=== PATIENT | female | born 1995 | race African-American/Black ===

== ENCOUNTER 2018-03-27 09:42 | Emergency (ER) | payer SELFPAY ==
[2018-03-27 10:11] LABS: Bilirubin Negative (Negative); Blood, Urine Large (Negative); Clarity CLOUDY (Clear); Glucose, Urine (Dipstick) Negative (Negative); Leukocyte Large (Negative); Nitrite Positive (Negative); Protein, Urine (Dipstick) 100 mg/dL (Neg-Trace); Specific Gravity, Urine 1.014 (1.002-1.036)
[2018-03-27 10:14] LABS: Bacteria/HPF 4+ HPF (None Seen); Hyaline Casts/LPF 4-6 HYALINE CAST LPF (0-3 Hyaline); Pathc Cast-AUWi Flag 0.87 (0-2.49); RBC/HPF GREATER THAN 50-TNTC HPF (0-3)
[2018-03-27 10:17] LABS: Pregnancy Test - Urine (BHCG) Negative (Negative); Pregu Control Background? CLEAR/WHITE (CLR/WHITE); Pregu Control Bar Appear? YES (CONTROL BAR); Specific Gravity 1.014 (1.002-1.036)
[2018-03-27] MEDS ORDERED: Ondansetron ODT 4 MG TAB ONE (10:29)
[2018-03-27 10:30] LABS: #Eosinphils 0.1 thou/uL (0.0-0.7); #Lymphocytes 1.2 thou/uL (1.20-3.40); #Monocytes 0.6 thou/uL (0.11-0.59); #Neutrophils 2.3 thou/uL (1.40-6.50); %Basophils 0.9 % (0.0-1.0); %Eosinophils 1.6 % (0.0-10.0); %Lymphocytes 28.5 % (21.0-51.0); %Monocytes 13.8 % (0.0-10.0); %Neutrophils 55.2 % (42.0-75.0); Hemoglobin 12.1 g/dL (12.0-16.0); Mean Corpuscular HGB CONC 31.6 g/dL (32.0-36.0); Mean Corpuscular Hemoglobin 26.1 pg (27.0-31.0); Mean Corpuscular Volume 82.5 fL (78.0-98.0); Mean Platelet Volume 8.6 fL (7.4-10.4); Platelet Count 246 thou/uL (130-400); RBC Distribution Width 13.5 % (11.5-14.5); Red Blood Cell (RBC) Count 4.63 mill/uL (4.20-5.40); White Blood Cell (WBC) Count 4.2 thou/uL (4.8-10.8)
[2018-03-27 11:00] LABS: ALT (SGPT) 16 U/L (8-55); AST (SGOT) 14 U/L (5-34); Albumin 3.5 g/dL (3.5-5.0); Alkaline Phosphatase 68 U/L (40-150); Anion Gap 13 mmol/L (10-20); BUN (Urea Nitrogen) 7 mg/dL (7.0-18.7); Bilirubin, Total 0.3 mg/dL (0.2-1.2); Calc. Creatinine Clearance 0 mL/min (70-130); Calcium 8.7 mg/dL (7.8-10.44); Carbon Dioxide 21 mmol/L (22-29); Chloride 107 mmol/L (98-107); Estimated GFR-MDRD Greater than 90; Globulin 3.6 g/dL (2.4-3.5); Glucose 99 mg/dL (70-105); Lipase 18 U/L (8-78); Potassium 3.8 mmol/L (3.5-5.1); Protein, Total 7.1 g/dL (6.0-8.3); Sodium 137 mmol/L (136-145)
== END 2018-03-27 11:30 | disposition home or self-care (01) ==
LOC: ERS 09:42
DX: N10 Acute pyelonephritis (principal)
CPT/HCPCS: 80053; 81003; 81015; 81025; 83690; 85025; 99284; Q0162

== ENCOUNTER 2018-05-13 13:46 | Emergency (ER) | payer SELFPAY | END 2018-05-13 14:55 | disposition home or self-care (01) | LOC: ERS 13:46 | DX: S39.011A Strain of muscle, fascia and tendon of abdomen, initial encounter (principal); X58.XXXA Exposure to other specified factors, initial encounter | CPT/HCPCS: 99283 ==

== ENCOUNTER 2018-12-02 07:15 | Emergency (ER) | payer SELFPAY ==
[2018-12-02] MEDS ORDERED: Dexamethasone 10 MG/ML VIAL ONE (07:43)
[2018-12-02] MEDS ORDERED: Lidocaine 1% PF 5 ML VIAL ONE (07:43)
[2018-12-02] MEDS ORDERED: cefTRIAXone\\ROCEPHIN 1 GM VIAL ONE (07:43)
== END 2018-12-02 08:00 | disposition home or self-care (01) ==
LOC: ERS 07:15
DX: J36 Peritonsillar abscess (principal)
CPT/HCPCS: 96372; 99282; J0696; J1100; J2001

== ENCOUNTER 2019-04-28 00:15 | Emergency (ER) | payer SELFPAY ==
[2019-04-28] MEDS ORDERED: Acetaminophen 500 MG TAB ONE (00:39)
[2019-04-28] MEDS ORDERED: Adacel (T-DAP) 0.5 ML SYRINGE ONE (00:39)
[2019-04-28] MEDS ORDERED: HYDROcodone/Acetaminophen 10/325 mg Tablet ONE (00:39)
--- NOTE | 2019-04-28 08:09 | RAD ---
THREE VIEWS LEFT ANKLE: COMPARISON: None. HISTORY: Fall with ankle pain. FINDINGS: Three views left ankle show no evidence of acute fracture or dislocation. Moderate diffuse soft tiss ue swelling is seen. No degenerative changes are present. IMPRESSION: No evidence of acute osseous abnormality. POS: [facility]
--- NOTE | 2019-04-28 08:18 | RAD ---
THREE VIEWS LEFT FOOT: HISTORY: Left foot pain after falling and twisting on stairs. FINDINGS: Three views left foot show no evidence of acute fracture or dislocation. No degenerative changes are seen. Mild diffuse soft tissue swelling is seen. IMPRESSION: No evidence of acute osseous abnormality. POS: [facility]
== END 2019-04-28 03:05 | disposition home or self-care (01) ==
LOC: ERS 00:15
DX: S93.402A Sprain of unspecified ligament of left ankle, initial encounter (principal); S80.212A Abrasion, left knee, initial encounter; Z71.6 Tobacco abuse counseling; X50.1XXA Overexertion from prolonged static or awkward postures, initial encounter
CPT/HCPCS: 90471; 90715; 99406

== ENCOUNTER 2020-01-13 14:34 | Emergency (ER) | payer SELFPAY ==
[2020-01-13 15:59] LABS: Bilirubin Negative (Negative); Blood, Urine Negative (Negative); Clarity Clear (Clear); Glucose, Urine (Dipstick) Normal (Negative); Ketone, Urine Negative (Negative); Leukocyte 500 Leu/uL (Negative); Mucous/LPF 2+ LPF (<2+); Nitrite Negative (Negative); Protein, Urine (Dipstick) 10 mg/dL (Neg-Trace); RBC/HPF 0-3 HPF (0-3); Specific Gravity, Urine 1.025 (1.002-1.036); Squamous Epithelial 0-3 HPF (0-3); Urobilinogen Normal mg/dL (Less than 2)
[2020-01-13 16:01] LABS: Pregnancy Test - Urine (BHCG) Negative (Negative); Pregu Control Background? CLEAR/WHITE (CLR/WHITE); Pregu Control Bar Appear? YES (CONTROL BAR); Specific Gravity 1.025 (1.002-1.036)
[2020-01-13 16:11] LABS: Bacteria/HPF None Seen HPF (None Seen)
== END 2020-01-13 16:01 | disposition home or self-care (01) ==
LOC: ERS 14:34
DX: K29.00 Acute gastritis without bleeding (principal); F17.200 Nicotine dependence, unspecified, uncomplicated
CPT/HCPCS: 81003; 81015; 81025; 87077; 87086; 99284

== ENCOUNTER 2020-03-17 11:28 | Emergency (ER) | payer SELFPAY ==
[2020-03-17 12:26] LABS: BHCG - Serum POSITIVE (NEGATIVE); Pregs Control Background? CLEAR/WHITE (CLR/WHITE); Pregs Control Bar Appear? YES (CONTROL BAR)
== END 2020-03-17 12:47 | disposition home or self-care (01) ==
LOC: ERS 11:28
DX: O21.9 Vomiting of pregnancy, unspecified (principal)
CPT/HCPCS: 36415; 84703; 99284

== ENCOUNTER 2020-08-23 15:22 | Emergency (ER) | payer MEDICAID ==
[2020-08-23] MEDS ORDERED: Metoclopramide HCl 10 MG/2 ML VIAL ONE (16:48)
[2020-08-23] MEDS ORDERED: diphenhydrAMINE 50 MG/ML VIAL ONE (16:49)
[2020-08-23 17:17] LABS: #Eosinphils 0.1 thou/uL (0.0-0.7); #Lymphocytes 1.6 thou/uL (1.20-3.40); #Monocytes 0.5 thou/uL (0.11-0.59); #Neutrophils 3.7 thou/uL (1.40-6.50); %Basophils 0.3 % (0.0-1.0); %Eosinophils 1.3 % (0.0-10.0); %Lymphocytes 26.9 % (21.0-51.0); %Monocytes 8.2 % (0.0-10.0); %Neutrophils 63.2 % (42.0-75.0); Hemoglobin 10.4 g/dL (12.0-16.0); Mean Corpuscular HGB CONC 34.1 g/dL (32.0-36.0); Mean Corpuscular Hemoglobin 28.2 pg (27.0-31.0); Mean Corpuscular Volume 82.7 fL (78.0-98.0); Mean Platelet Volume 9.4 fL (7.4-10.4); Platelet Count 230 thou/uL (130-400); Red Blood Cell (RBC) Count 3.67 mill/uL (4.20-5.40); White Blood Cell (WBC) Count 5.8 thou/uL (4.8-10.8)
[2020-08-23 17:54] LABS: ALT (SGPT) 19 U/L (8-55); AST (SGOT) 21 U/L (5-34); Alkaline Phosphatase 101 U/L (40-110); Anion Gap 14 mmol/L (10-20); BUN (Urea Nitrogen) Less than 4 mg/dL (7.0-18.7); Bilirubin, Total 0.3 mg/dL (0.2-1.2); Calc. Creatinine Clearance 0 mL/min (70-130); Calcium 8.6 mg/dL (7.8-10.44); Carbon Dioxide 17 mmol/L (22-29); Chloride 109 mmol/L (98-107); Glucose 88 mg/dL (70-105); Sodium 136 mmol/L (136-145)
== END 2020-08-23 21:53 | disposition short-term general hospital (02) ==
LOC: ERS 15:22
DX: O13.3 Gestational [pregnancy-induced] hypertension without significant proteinuria, third trimester (principal); Z3A.29 29 weeks gestation of pregnancy
CPT/HCPCS: 80053; 85025; 93005; 94760; 96374; 96375; J1200; J2765

== ENCOUNTER 2021-08-17 05:48 | Emergency (ER) | payer OTHER ==
[2021-08-17] MEDS ORDERED: Acetaminophen 500 MG TAB ONE (06:04)
[2021-08-17] MEDS ORDERED: cefTRIAXone\\ROCEPHIN 1 GM VIAL ONE (06:40)
[2021-08-17] MEDS ORDERED: Lidocaine 1% PF 5 ML VIAL ONE (06:41)
== END 2021-08-17 07:05 | disposition home or self-care (01) ==
LOC: ERS 05:48
DX: J18.9 Pneumonia, unspecified organism (principal); Z20.822 Contact with and (suspected) exposure to COVID-19
CPT/HCPCS: 71045; 93005; 96372; J0696; U0003; U0005

== ENCOUNTER 2023-02-03 18:41 | Emergency (ER) | payer OTHER, SELFPAY ==
[2023-02-03] MEDS ORDERED: Ondansetron PF 4 MG/2 ML Vial ONE (19:47)
[2023-02-03] MEDS ORDERED: Ipratropium/Albuterol 3 ML NEB ONE (19:47)
[2023-02-03] MEDS ORDERED: Ketorolac Tromethamine 30 MG/ML VIAL ONE (19:47)
[2023-02-03] MEDS ORDERED: Dexamethasone 10 MG/ML VIAL ONE (19:47)
[2023-02-03 20:27] LABS: SARS-CoV-2 NAA Rapid Test Not Detected (NotDetected)
== END 2023-02-03 21:30 | disposition home or self-care (01) ==
LOC: ERS 18:41
DX: B34.9 Viral infection, unspecified (principal); R19.7 Diarrhea, unspecified; R11.2 Nausea with vomiting, unspecified; E11.9 Type 2 diabetes mellitus without complications; Z20.822 Contact with and (suspected) exposure to COVID-19
CPT/HCPCS: 71045; 87804; 96374; 96375; J1100; J1885; J2405; J7620; U0002

== ENCOUNTER 2023-02-28 18:35 | Emergency (ER) | payer MEDICAID, OTHER, SELFPAY | END 2023-02-28 20:20 | disposition home or self-care (01) | LOC: ERS 18:35 | DX: L60.0 Ingrowing nail (principal); E11.9 Type 2 diabetes mellitus without complications; Z79.84 Long term (current) use of oral hypoglycemic drugs | CPT/HCPCS: 99283 ==

== ENCOUNTER 2023-03-27 07:15 | Emergency (ER) | payer SELFPAY ==
[2023-03-27] MEDS ORDERED: Ketorolac Tromethamine 30 MG (1 mL) VIAL ONE (07:54)
[2023-03-27 07:56] LABS: #Monocytes 0.3 thou/uL (0.11-0.59); #Neutrophils 3.6 thou/uL (1.40-6.50); %Basophils 0.2 % (0.0-1.0); %Eosinophils 0.9 % (0.0-10.0); %Lymphocytes 16.2 % (21.0-51.0); %Monocytes 5.6 % (0.0-10.0); %Neutrophils 76.9 % (42.0-75.0); Hematocrit 44.4 % (36.0-47.0); Hemoglobin 14.6 g/dL (12.0-16.0); Mean Corpuscular HGB CONC 32.9 g/dL (32.0-36.0); Mean Corpuscular Hemoglobin 27.7 pg (27.0-31.0); Mean Corpuscular Volume 84.3 fl (78.0-98.0); Mean Platelet Volume 11.1 fL (7.4-10.4); Platelet Count 292 10x3/uL (130-400); Red Blood Cell (RBC) Count 5.27 mill/uL (4.20-5.40); White Blood Cell (WBC) Count 4.6 10x3/uL (4.8-10.8)
[2023-03-27] MEDS ORDERED: Dicyclomine 20 MG/2 ML VIAL ONE (07:56)
[2023-03-27] MEDS ORDERED: Azithromycin 250 MG TAB ONE (07:56)
[2023-03-27] MEDS ORDERED: Prochlorperazine 10 MG/2 ML VIAL ONE (07:57)
[2023-03-27] MEDS ORDERED: Diphenoxylate HCl/Atropine Tablet ONE (07:57)
[2023-03-27 08:12] LABS: BHCG - Serum Negative (NEGATIVE); Pregs Control Background? CLEAR/WHITE (CLR/WHITE); Pregs Control Bar Appear? YES (CONTROL BAR)
[2023-03-27 08:22] LABS: ALT (SGPT) 16 U/L (8-55); AST (SGOT) 11 U/L (5-34); Alkaline Phosphatase 82 U/L (40-110); Anion Gap 11 mmol/L (10-20); BUN (Urea Nitrogen) 12 mg/dL (7.0-18.7); Bilirubin, Total 0.9 mg/dL (0.2-1.2); Calc. Creatinine Clearance 0 mL/min (70-130); Calcium 9.2 mg/dL (7.8-10.44); Carbon Dioxide 24 mmol/L (22-29); Chloride 102 mmol/L (98-107); Estimated GFR 86; Globulin 4.1 g/dL (2.4-3.5); Glucose 170 mg/dL (70-105); Lipase 20 U/L (8-78); Magnesium 1.9 mg/dL (1.6-2.6); Protein, Total 8.1 g/dL (6.0-8.3); Sodium 133 mmol/L (136-145)
[2023-03-27 10:24] LABS: Bilirubin Negative (Negative); Blood, Urine Negative (Negative); CAUTI Indications for Culture Pelvic or flank pain; Clarity Extra Turbid (Clear); Glucose, Urine (Dipstick) Normal (Negative); Ketone, Urine Negative (Negative); Leukocyte Negative Leu/uL (Negative); Nitrite Negative (Negative); Protein, Urine (Dipstick) 30 mg/dL (Neg-Trace); RBC/HPF 0-3 HPF (0-3); Specific Gravity, Urine 1.038 (1.002-1.036); WBC/HPF 0-3 HPF (0-3); pH, Urine 5.5 (5.0-9.0)
[2023-03-27 10:27] LABS: Bacteria/HPF 1+ HPF (None Seen); Urine Culture Reflex No No
[2023-03-27 10:59] LABS: Campy jejuni + coli by PCR Negative (Negative); STEC Shiga Toxin 1+2 Negative (Negative); Salmonella spp. by PCR Negative (Negative); Shigella spp + EIEC by PCR Negative (Negative)
== END 2023-03-27 10:56 | disposition home or self-care (01) ==
LOC: ERS 07:15
DX: K52.9 Noninfective gastroenteritis and colitis, unspecified (principal); E11.9 Type 2 diabetes mellitus without complications
CPT/HCPCS: 80053; 81001; 83690; 83735; 84703; 85025; 87505; 96361; 96372; 96374; 96375; J0780; J1885